=== PATIENT | male | born 1965 | race Caucasian/White ===

== ENCOUNTER → 2022-05-07 12:54 | Outpatient (CLI) | payer BC, SELFPAY ==
[2022-05-07 13:22] LABS: Basophils # 0.1 K/mm3 (0-0.2); Basophils % 1.5 % (0.1-2.0); Eosinophils # 0.1 K/mm3 (0.0-0.4); Eosinophils % 1.6 % (0.1-12.0); Hematocrit 49.4 % (42.0-52.0); Hemoglobin 16.8 g/dL (14.1-18.0); Lymphocytes # 2.3 K/mm3 (0.7-4.5); Lymphocytes % 33.1 % (10-50); Mean Corpuscular HGB Conc 34.1 g/dL (31.8-35.4); Mean Corpuscular Volume 85.1 fl (80-94); Mean Platelet Volume 7.8 fl (7.4-10.4); Monocytes # 0.3 K/mm3 (0.1-1.0); Monocytes % 3.8 % (1.7-9.3); Neutrophils # 4.1 K/mm3 (1.8-7.8); Neutrophils % 59.9 % (37.0-80.0); Platelet Count 189 K/mm3 (142-424); Red Cell Distribution Width 13.7 % (11.5-17.5); White Blood Count 6.8 K/mm3 (4.8-10.8)
[2022-05-07 13:58] LABS: Alanine Aminotransferase 32 U/L (12-78); Albumin Level 4.2 g/dl (3.5-5.0); Albumin/Globulin Ratio 1.6 (1.1-1.8); Alkaline Phosphatase 91 U/L (38-126); Anion Gap 13.5 mEq/L (5-15); Aspartate Amino Transferase 25 U/L (17-59); Bilirubin,Total 0.7 mg/dl (0.2-1.3); Blood Urea Nitrogen 21 mg/dl (9-20); Calcium 9.2 mg/dl (8.4-10.2); Carbon Dioxide 23 mmol/L (22.0-30.0); Chloride 104 mmol/L (98-107); Estimated Glomerular Filt Rate 115 ml/min (>60); GFR (African American) 140 ML/MIN (>60); Globulin 2.7 g/dL (1.3-3.2); Glucose 378 mg/dl (74-100); Potassium 4.5 mmoL/L (3.5-5.1); Sodium 136 mmol/L (136-145); Total Protein,Serum 6.9 g/dl (6.3-8.2)
== END ==
PROVIDERS: PCP Pediatrics; Visit Provider Specialist
DX: E11.9 Type 2 diabetes mellitus without complications (principal); R51.9 Headache, unspecified; Z79.84 Long term (current) use of oral hypoglycemic drugs
CPT/HCPCS: 36415; 80053; 85025

== ENCOUNTER → 2022-06-20 15:10 | Outpatient (CLI) | payer BC, SELFPAY ==
[2022-06-20 16:36] LABS: Chloride 104 mmol/L (98-107); Potassium 4.3 mmoL/L (3.5-5.1); Sodium 134 mmol/L (136-145)
[2022-06-20 16:39] LABS: Blood Urea Nitrogen 20 mg/dl (9-20); Estimated Glomerular Filt Rate 138 ml/min (>60); GFR (African American) 167 ML/MIN (>60)
[2022-06-20 16:40] LABS: Anion Gap 14.3 mEq/L (5-15); Calcium 9.2 mg/dl (8.4-10.2); Carbon Dioxide 20 mmol/L (22.0-30.0); Glucose 244 mg/dl (74-100)
== END ==
PROVIDERS: PCP Pediatrics; Visit Provider Specialist
DX: E11.65 Type 2 diabetes mellitus with hyperglycemia (principal); G89.29 Other chronic pain; R51.9 Headache, unspecified; Z79.84 Long term (current) use of oral hypoglycemic drugs
CPT/HCPCS: 36415; 80048

== ENCOUNTER → 2022-06-21 10:58 | Outpatient (CLI) | payer BC, SELFPAY ==
--- NOTE | 2022-06-21 10:58 | MR_ITS ---
FINAL REPORT CLINICAL HISTORY: severe headache. BLURRED VISION and dizziness. FINDINGS: Multiplanar MR imaging of the brain was performed without and with contrast. Scattered foci of increased T2 signal are seen in the cerebral white matter that have a nonspecific appearance but likely represent mild chronic ischemic/gliotic changes. There is no evidence of intracranial hemorrhage or mass. No abnormal ventricular dilatation is identified. There is no evidence of shift of the midline structures. No abnormal extra-axial fluid collection is seen. No area of abnormal restricted diffusion is identified. The posterior fossa and brainstem have an unremarkable appearance. No abnormal contrast enhancement is seen. Normal major vessel vascular flow voids are seen. IMPRESSION: Mild ischemic/gliotic changes. No acute intracranial abnormality. Reviewed, Interpreted and Dictated by Anuel Albert III, MD Transcribed by Joy Murillo Authenticated and . [facility]
== END ==
PROVIDERS: PCP Pediatrics; Visit Provider Specialist
DX: R51.9 Headache, unspecified (principal)
CPT/HCPCS: 70553; A9576

== ENCOUNTER → 2022-08-22 12:02 | Outpatient (CLI) | payer BC, SELFPAY ==
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
[2022-08-22 13:30] VITALS: PULSE 104; PULSE 107
== END ==
PROVIDERS: PCP Pediatrics; Visit Provider Internal Medicine Pulmonary Disease
DX: R06.02 Shortness of breath (principal)
CPT/HCPCS: 71046; 94060; 94618; 94640; 94727; 94729

== ENCOUNTER → 2022-08-29 12:11 | Outpatient (CLI) | payer BC, SELFPAY ==
[2022-08-29 12:39] LABS: Basophils % 0.6 % (0.1-2.0); Eosinophils # 0.1 K/mm3 (0.0-0.4); Eosinophils % 2.1 % (0.1-12.0); Hematocrit 46.2 % (42.0-52.0); Lymphocytes # 1.5 K/mm3 (0.7-4.5); Lymphocytes % 23.6 % (10-50); Mean Corpuscular Hemoglobin 37.3 pg (27.0-31.2); Mean Corpuscular Volume 83.7 fl (80-94); Mean Platelet Volume 7.9 fl (7.4-10.4); Monocytes # 0.2 K/mm3 (0.1-1.0); Monocytes % 3.6 % (1.7-9.3); Neutrophils # 4.5 K/mm3 (1.8-7.8); Neutrophils % 70.1 % (37.0-80.0); Platelet Count 222 K/mm3 (142-424); Red Blood Count 5.52 M/mm3 (4.60-6.20); White Blood Count 6.5 K/mm3 (4.8-10.8)
[2022-08-29 12:52] LABS: Mean Corpuscular HGB Conc 44.6 g/dL (31.8-35.4); Uric Acid 3.4 mg/dl (3.5-8.5)
[2022-08-29 12:56] LABS: Hemoglobin 15.2 g/dL (14.1-18.0)
[2022-08-29 12:57] LABS: C-Reactive Protein 6.9 mg/L (0-4)
[2022-08-29 13:24] LABS: Erythrocyte Sedimentation Rate 96 mm/hr (0-20)
[2022-08-30 15:04] LABS: RA Latex Turbid. 13.4 IU/mL (<14.0)
[2022-09-04 14:26] LABS: D001-IgE D pteronyssinus <0.10 kU/L (Class 0); D002-IgE D farinae <0.10 kU/L (Class 0); E001-IgE Cat Dander <0.10 kU/L (Class 0); E005-IgE Dog Dander 0.12 kU/L (Class 0/I); E072-IgE Mouse Urine <0.10 kU/L (Class 0); G002-IgE Bermuda Grass <0.10 kU/L (Class 0); G006-IgE Timothy Grass <0.10 kU/L (Class 0); I006-IgE Cockroach, German 0.12 kU/L (Class 0/I); Immunoglobulin E, Total 138 IU/mL (6-495); M001-IgE Penicillium chrysogen <0.10 kU/L (Class 0); M002-IgE Cladosporium herbarum <0.10 kU/L (Class 0); M003-IgE Aspergillus fumigatus <0.10 kU/L (Class 0); M006-IgE Alternaria alternata <0.10 kU/L (Class 0); T003-IgE Common Silver Birch <0.10 kU/L (Class 0); T006-IgE Cedar, Mountain 0.13 kU/L (Class 0/I); T007-IgE Oak, White 0.12 kU/L (Class 0/I); T008-IgE Elm, American <0.10 kU/L (Class 0); T010-IgE Walnut 0.13 kU/L (Class 0/I); T011-IgE Maple Leaf Sycamore <0.10 kU/L (Class 0); T014-IgE Cottonwood 0.11 kU/L (Class 0/I); T015-IgE Ash, White <0.10 kU/L (Class 0); T022-IgE Pecan, Hickory <0.10 kU/L (Class 0); T070-IgE White Mulberry <0.10 kU/L (Class 0); W001-IgE Ragweed, Short 0.12 kU/L (Class 0/I); W011-IgE Thistle, Russian <0.10 kU/L (Class 0); W014-IgE Pigweed, Common <0.10 kU/L (Class 0); W018-IgE Sheep Sorrel <0.10 kU/L (Class 0)
== END ==
PROVIDERS: PCP Pediatrics; Visit Provider Internal Medicine Pulmonary Disease
DX: R06.09 Other forms of dyspnea (principal); J45.909 Unspecified asthma, uncomplicated; J84.9 Interstitial pulmonary disease, unspecified; J30.9 Allergic rhinitis, unspecified
CPT/HCPCS: 36415; 82785; 84550; 85025; 85651; 86003; 86038; 86140; 86200; 86225; 86235; 86256; 86431

== ENCOUNTER → 2022-09-12 11:36 | Outpatient (CLI) | payer BC, SELFPAY ==
--- NOTE | 2022-09-12 11:41 | CT_ITS ---
FINAL REPORT TECHNIQUE: Axial imaging of the chest was obtained without contrast using high-resolution protocol. Reformatted images were also obtained and reviewed.This study was performed with techniques to keep radiation doses as low as reasonably achievable, (ALARA). Individualized dose reduction technique using automated exposure control or adjustment of mA and/or kV according to the patient's size were employed. CLINICAL HISTORY: Hi resolution chest Lyrica usage FINDINGS: There is a stent in the left anterior descending coronary artery. There is no axillary adenopathy. There is no hilar or mediastinal mass or adenopathy. Heart size is normal. There is no pericardial or pleural effusion. Limited images of the upper abdomen are unremarkable. No suspicious infiltrate or nodule is identified on lung window images. There is no evidence of septal thickening. IMPRESSION: No evidence of interstitial fibrosis. Reviewed, Interpreted and Dictated by Bijan Mcallister MD Transcribed by Joy Murillo Authenticated and [facility]
[2022-09-12 14:20] LABS: HDL Cholesterol 21 mg/dl (40-60)
[2022-09-12 16:11] LABS: Chol/HDL Ratio 60.3 (1-3.5)
[2022-09-12 16:13] LABS: Cholesterol 1267 mg/dl (140-200)
[2022-09-12 17:00] LABS: Triglycerides 11159 mg/dl (30-150)
== END ==
PROVIDERS: PCP Pediatrics; Visit Provider Internal Medicine Pulmonary Disease
DX: R06.02 Shortness of breath (principal); J84.9 Interstitial pulmonary disease, unspecified; J98.4 Other disorders of lung; Z79.899 Other long term (current) drug therapy
CPT/HCPCS: 36415; 71250; 80061

== ENCOUNTER → 2022-11-29 12:52 | Outpatient (CLI) | payer BC, SELFPAY ==
[2022-11-29 14:10] VITALS: PULSE 75; PULSE 76
== END ==
PROVIDERS: PCP Pediatrics; Visit Provider Internal Medicine Pulmonary Disease
DX: R06.02 Shortness of breath (principal)
CPT/HCPCS: 94060; 94640; 94727; 94729

== ENCOUNTER → 2022-12-09 08:54 | Outpatient (CLI) | payer BC, SELFPAY | PROVIDERS: PCP Pediatrics; Visit Provider Specialist | DX: R06.09 Other forms of dyspnea (principal) | CPT/HCPCS: 94762 ==

== ENCOUNTER → 2022-12-12 11:52 | Outpatient (CLI) | payer BC, SELFPAY ==
[2022-12-12 13:01] LABS: Uric Acid 4.7 mg/dl (3.5-8.5)
[2022-12-12 13:03] LABS: Erythrocyte Sedimentation Rate 21 mm/hr (0-20)
[2022-12-13 13:22] LABS: Anti-Centromere B Antibodies <0.2 AI (0.0-0.9); Anti-Cyclic Citrullinated Pept 5 units (0-19); Anti-DNA (DS) Ab Qn 2 IU/mL (0-9); Anti-Jo-1 <0.2 AI (0.0-0.9); Antiribosomal P Antibodies <0.2 AI (0.0-0.9); Antiscleroderma-70 Antibodies <0.2 AI (0.0-0.9); Cytoplasmic (C-ANCA) <1:20 titer (Neg:<1:20); Perinuclear (P-ANCA) <1:20 titer (Neg:<1:20); RA Latex Turbid. <10.0 IU/mL (<14.0); Sjogren's Anti-SS-A <0.2 AI (0.0-0.9); Sjogren's Anti-SS-B <0.2 AI (0.0-0.9); Smith/RNP Antibodies <0.2 AI (0.0-0.9)
[2022-12-13 18:28] LABS: Antinuclear Antibodies, IFA Negative (.)
== END ==
PROVIDERS: PCP Pediatrics; Visit Provider Internal Medicine Pulmonary Disease
DX: R06.09 Other forms of dyspnea (principal); J84.9 Interstitial pulmonary disease, unspecified; J84.10 Pulmonary fibrosis, unspecified
CPT/HCPCS: 36415; 83516; 84550; 85651; 86038; 86140; 86200; 86225; 86235; 86256; 86431

== ENCOUNTER → 2023-01-31 12:46 | Outpatient (CLI) | payer OTHER, SELFPAY ==
--- OUTSIDE RECORDS SUMMARY | 2023-01-31 12:49 | XMS_ITS | Continuity of Care Document ---
Author Name Unknown Organization [facility] o Address [address] [place] [address] Phone Care Team Providers Care Scrap Wheeler Name Role Phone Norman Rodriguez MD Unavailable Unavailable Allergies, Adverse Reactions, Alerts Substance Reaction Status Criticality No Known allergies Medications Medication Instructions Dosage Effective Dates (start - stop) Status Comments No Drug Therapy Prescribed Procedures Procedure Date Office/outpatient visit,[facility] 2022 Advance Directives Directive Yes / No Effective Date File Name No Information Encounters Encounter Description Practice Location Reason(s) For Visit Diagnoses Date Provider Providers Copied on Encounter [facility], [facility][note 3] [place], [address], [place] tel:[phone] Romina Varma No Information 3 Michael Austin. [address] [place], [address], [place]. tel:[phone] Referring Provider: Umair Ramos, [address] [place], [address] . tel:[phone] Office/outpat ient visit,[facility], [address] [facility]
[2023-01-31 14:31] LABS: Hemoglobin A1C 9.6 % (4.0-6.0)
[2023-01-31 14:36] LABS: Alanine Aminotransferase 39 U/L (12-78); Albumin Level 4.3 g/dl (3.5-5.0); Albumin/Globulin Ratio 1.7 (1.1-1.8); Alkaline Phosphatase 82 U/L (38-126); Anion Gap 16.6 mEq/L (5-15); Aspartate Amino Transferase 30 U/L (17-59); Bilirubin,Total 0.9 mg/dl (0.2-1.3); Blood Urea Nitrogen 14 mg/dl (9-20); Calcium 9.1 mg/dl (8.4-10.2); Carbon Dioxide 21 mmol/L (22.0-30.0); Chloride 103 mmol/L (98-107); Estimated Glomerular Filt Rate 115 ml/min (>60); GFR (African American) 140 ML/MIN (>60); Globulin 2.6 g/dL (1.3-3.2); Glucose 199 mg/dl (74-100); Potassium 3.6 mmoL/L (3.5-5.1); Sodium 137 mmol/L (136-145); Total Protein,Serum 6.9 g/dl (6.3-8.2)
[2023-01-31 14:41] LABS: C-Reactive Protein 1.4 mg/L (0-4)
[2023-01-31 14:51] LABS: 25-OH Vitamin D, Total 72.8 ng/mL (30-100)
[2023-01-31 15:25] LABS: Vitamin B12 592 pg/mL (239-931)
[2023-01-31 16:14] LABS: Free Thyroxine Index 4.6 ug/dL (5.93-13.13); T4 (Thyroxine) 11.5 ug/dl (5.53-11.0); Triiodothryronine (T3) Uptake 40 % (23.5-40.5)
[2023-01-31 16:28] LABS: Thyroid Stimulating Hormone 0.56 uIU/mL (0.465-4.68)
[2023-02-05 13:32] LABS: Antinuclear Antibodies (ANA) Negative
== END ==
PROVIDERS: Internal Medicine Pulmonary Disease; PCP Pediatrics; Visit Provider Hospitalist
DX: E11.69 Type 2 diabetes mellitus with other specified complication (principal); E78.5 Hyperlipidemia, unspecified; E55.9 Vitamin D deficiency, unspecified; Z68.35 Body mass index [BMI] 35.0-35.9, adult; Z79.4 Long term (current) use of insulin; Z79.84 Long term (current) use of oral hypoglycemic drugs
CPT/HCPCS: 36415; 80053; 82306; 82607; 83036; 84436; 84443; 84479; 86038; 86140

== ENCOUNTER 2023-09-29 10:07 | Outpatient (CLI) | payer MEDICARE, OTHER, SELFPAY ==
[2023-09-29] MEDS: ALBUTEROL 0.083% 2.5 MG/3 ML NEB IH (10:50)
--- NOTE | 2023-09-29 10:58 | PC.NURSE ---
PFT and 6 Minute Walk Test completed without incident. Albuterol 0.083% given via HHN, per written protocol. Pt tolerated tx well.
== END 2023-09-29 23:59 | disposition home or self-care (01) ==
LOC: RT 10:07
PROVIDERS: PCP Pediatrics; Visit Provider Internal Medicine Pulmonary Disease
DX: R06.09 Other forms of dyspnea (principal); J44.9 Chronic obstructive pulmonary disease, unspecified
CPT/HCPCS: 94060; 94618; 94726; 94729; J7613

== ENCOUNTER 2024-04-24 20:59 | Emergency (ER) | payer OTHER, MEDICARE, SELFPAY ==
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
--- NOTE | 2024-04-24 21:11 | ECG_ITS ---
APPROVED REPORT Exam: Resting ECG HR:98 bpm ECG Measurements Heart Rate 98 AXES SC 147 P 39 QRSd 105 QRS -56 QT 358 T 3 QTc 414 Conclusion SINUS RHYTHM PATTERN CONSISTENT WITH PULMONARY DISEASE LEFT ANTERIOR FASCICULAR BLOCK [QRS AXIS <= -45, QR IN I, RS IN II] ABNORMAL ECG UNCONFIRMED REPORT Electronically signed by : BEAN HUSSEIN, 04/25/2024 06:32:58
[2024-04-24 21:12] VITALS: BP 174/109; PULSE 100; RESP 20; TEMP 36.8; O2SAT 92; BMI 35.7
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
--- NOTE | 2024-04-24 21:22 | PC.NURSE ---
C-collar placed on patient due to neck pain
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
--- NOTE | 2024-04-24 21:40 | PC.NURSE ---
Report given to Jody CARTAGENA
[2024-04-24 22:00] VITALS: BP 207/142; PULSE 95; RESP 15; O2SAT 95
[2024-04-24] MEDS: MORPHINE 4MG/ML SYRINGE 4 MG IV (22:05)
[2024-04-24] MEDS: ONDANSETRON 4MG/2ML VIAL 4 MG IV (22:05)
[2024-04-24] MEDS: 0.9 % SODIUM CHLORIDE 1000ML 1,000 ML 999 ML IV (22:05)
[2024-04-24 22:06] LABS: Basophils % 0.8 % (0.1-2.0); Eosinophils # 0.1 K/mm3 (0.0-0.4); Eosinophils % 1.6 % (0.1-12.0); Hematocrit 42.4 % (42.0-52.0); Hemoglobin 15.5 g/dL (14.1-18.0); Lymphocytes # 1.9 K/mm3 (0.7-4.5); Lymphocytes % 37.1 % (10-50); Mean Corpuscular HGB Conc 36.6 g/dL (31.8-35.4); Mean Corpuscular Hemoglobin 29.7 pg (27.0-31.2); Mean Corpuscular Volume 81.2 fl (80-94); Mean Platelet Volume 11.3 fl (7.4-10.4); Monocytes # 0.2 K/mm3 (0.1-1.0); Monocytes % 4.1 % (1.7-9.3); Neutrophils # 2.9 K/mm3 (1.8-7.8); Neutrophils % 56.2 % (37.0-80.0); Platelet Count 200 K/mm3 (142-424); Red Blood Count 5.22 M/mm3 (4.60-6.20); Red Cell Distribution Width 12.4 % (11.5-17.5); White Blood Count 5.1 K/mm3 (4.8-10.8)
[2024-04-24 22:12] LABS: Albumin Level 4.6 g/dl (3.5-5.0); Chloride 98 mmol/L (98-107); Sodium 126 mmol/L (136-145)
[2024-04-24 22:15] LABS: Alanine Aminotransferase 43 U/L (12-78); Albumin/Globulin Ratio 1.3 (1.1-1.8); Alkaline Phosphatase 80 U/L (38-126); Aspartate Amino Transferase 77 U/L (17-59); Bilirubin,Total 2.3 mg/dl (0.2-1.3); Blood Urea Nitrogen 23 mg/dl (9-20); Carbon Dioxide 23 mmol/L (22.0-30.0); Creatinine Clearance Estimated 124 mL/min (50-200); Estimated Glomerular Filt Rate 169 ml/min (>60); GFR (African American) 205 ML/MIN (>60); Globulin 3.5 g/dL (1.3-3.2); Lipase 70 U/L (23-300); Total Protein,Serum 8.1 g/dl (6.3-8.2)
[2024-04-24 22:27] LABS: Troponin I 0.03 ng/ml (0.00-0.034)
[2024-04-24 22:30] VITALS: BP 166/108; PULSE 95; RESP 15; O2SAT 94
[2024-04-24 22:30] LABS: Glucose 576 mg/dl (74-100)
[2024-04-24 22:36] LABS: Activated Partial Thrombo Time 21.2 seconds (22.8-30.6); INR 0.92 (0.9-1.1); Prothrombin Time 10.4 seconds (10.1-12.5)
[2024-04-24] MEDS: HYDROMORPHONE 2MG/ML SYRINGE 0.5 MG IV (22:49)
[2024-04-24 22:55] LABS: Chloride 99 mmol/L (98-107); Potassium 4.8 mmoL/L (3.5-5.1); Sodium 129 mmol/L (136-145)
[2024-04-24 22:58] LABS: Anion Gap 9.8 mEq/L (5-15); Blood Urea Nitrogen 22 mg/dl (9-20); Carbon Dioxide 25 mmol/L (22.0-30.0); Creatinine Clearance Estimated 124 mL/min (50-200); Estimated Glomerular Filt Rate 169 ml/min (>60); GFR (African American) 205 ML/MIN (>60)
[2024-04-24 22:59] LABS: Calcium 8.9 mg/dl (8.4-10.2)
[2024-04-24 23:02] LABS: Glucose 515 mg/dl (74-100)
[2024-04-24] MEDS: CALCIUM CARBONATE 500MG CHEWTAB 500 MG PO (23:12)
[2024-04-24 23:31] LABS: HIV Combo NEGATIVE (Negative)
[2024-04-24 23:38] LABS: Hepatitis C Ab Qual. W/ RFX NEGATIVE (Negative)
[2024-04-24] MEDS: 0.9 % SODIUM CHLORIDE 50 ML VIAL 80 ML IV (23:48)
[2024-04-24] MEDS: SODIUM CHLORIDE 0.9% 10ML SYR (RAD ONLY) 10 ML IV (23:48)
[2024-04-24] MEDS: IOPAMIDOL-370 (76%);100ML BOTTLE 160 ML IV (23:48)
[2024-04-25 00:38] VITALS: BP 143/95; PULSE 81; RESP 20; TEMP 36.6; O2SAT 99
== END 2024-04-25 00:39 | disposition home or self-care (01) ==
PROVIDERS: Nurse Practitioner; Student in an Organized Health Care Education/Training Program; Emergency Provider Emergency Medicine; PCP Pediatrics
DX: R41.2 Retrograde amnesia (principal); R73.9 Hyperglycemia, unspecified; E87.1 Hypo-osmolality and hyponatremia; R51.9 Headache, unspecified; M54.2 Cervicalgia; R10.12 Left upper quadrant pain; V89.2XXA Person injured in unspecified motor-vehicle accident, traffic, initial encounter; Y93.89 Activity, other specified; Y92.410 Unspecified street and highway as the place of occurrence of the external cause
CPT/HCPCS: 70450; 70496; 70498; 71045; 71275; 72125; 72128; 72131; 72170; 74174; 80048; 80053; 83690; 84484; 85025; 85610; 85730; 86803; 87389; 93005; 96361; 96374; 96375; 99291; J1171; J2270; J2405; J7030; Q9967